=== PATIENT | female | born 1995 | race Caucasian/White ===

== ENCOUNTER 2022-12-01 00:10 | Emergency (ER) | payer MEDICAID ==
[~2022-12-01] VITALS: Ht 152.4 cm; Wt 54.0 kg
[2022-12-01 00:15] VITALS: BP 137/89
--- NOTE | 2022-12-01 01:08 | NUR ---
PT TO BED #6
--- NOTE | 2022-12-01 01:10 | NUR ---
Dr. Valerio by bedside evaluating patient.
[2022-12-01 01:14] LABS: BASOPHILS % (AUTO) 0.5 % (0.0-2.0); EOSINOPHILS # (AUTO) 0.1 K/uL (0-0.4); EOSINOPHILS % (AUTO) 0.9 % (0.0-4.0); HEMATOCRIT 38.1 % (36-48); HEMOGLOBIN 13.2 g/dL (12.0-16.0); LYMPHOCYTES # (AUTO) 1.6 K/uL (2.5-16.5); MEAN CORPUSCULAR HEMOGLOBIN 32 pg (27-31); MEAN CORPUSCULAR HGB CONC 35 g/dL (33-37); MEAN CORPUSCULAR VOLUME 90.9 fL (80-94); MONOCYTES # (AUTO) 0.7 K/uL (0.8-1.0); MONOCYTES % (AUTO) 8.1 % (1.7-9.3); NEUTROPHILS # (AUTO) 6.2 K/uL (1.8-7.7); NEUTROPHILS % (AUTO) 71.5 % (42.2-75.2); PLATELET COUNT (AUTO) 307 K/uL (140-450); RED BLOOD CELL COUNT(AUTO) 4.19 MIL/uL (4.20-5.40); RED CELL DISTRIBUTION WIDTH 12.2 % (11.6-13.7); WHITE BLOOD COUNT (AUTO) 8.7 K/uL (4.8-10.8)
--- NOTE | 2022-12-01 01:24 | NUR ---
Pt ambulated to restroom
--- NOTE | 2022-12-01 01:33 | NUR ---
Ultrasound at bedside.
--- NOTE | 2022-12-01 01:38 | NUR ---
Urine collected sent to lab
[2022-12-01 01:46] LABS: APPEARANCE,URINE CLEAR (CLEAR); BILIRUBIN,URINE NEGATIVE (NEGATIVE); BLOOD, URINE 3+ (NEGATIVE); COLOR,URINE YELLOW (YELLOW); LEUKOCYTE ESTERASE ,URINE NEGATIVE (NEGATIVE); NITRITE, URINE NEGATIVE (NEGATIVE); UGLUCOSE NEGATIVE (NEGATIVE)
[2022-12-01 01:53] LABS: ALBUMIN 3.6 g/dL (3.4-5.0); ANION GAP 11.2 (8-16); CARBON DIOXIDE 26.3 mmol/L (21-32); CREATININE 0.6 mg/dL (0.6-1.3); POTASSIUM 3.5 mmol/L (3.5-5.1); TOTAL BILIRUBIN 0.4 mg/dL (0.0-1.0)
[2022-12-01 01:56] LABS: WBC,URINE 0-5 /HPF (0-5)
--- NOTE | 2022-12-01 02:32 | NUR ---
PT AMBULATED TO RESTROOM, NOTIFIED THAT DURING WIPING HERSELF SHE NOTICES BLOOD ON TISSUE PAPER. ELIANAD MADE AWARE.
[2022-12-01] MEDS ORDERED: CEPH-588 PO (04:02)
--- NOTE | 2022-12-01 04:03 | NUR ---
Dr. Valerio examining patient.
[2022-12-01 04:12] VITALS: BP 137/89
--- NOTE | 2022-12-01 04:14 | NUR ---
Patient discharged with v/s stable. Written and verbal after care instructions given and explained. Patient verbalized understanding. Ambulatory with steady gait. All questions addressed prior to discharge. Advised to follow up with PMD.
== END 2022-12-01 04:14 | disposition home or self-care (01) ==
LOC: MED 00:10
DX: O20.0 Threatened abortion (principal); Z3A.18 18 weeks gestation of pregnancy; Z79.2 Long term (current) use of antibiotics
CPT/HCPCS: 36415; 76805; 80053; 81001; 81025; 84702; 85025; 86886; 86900; 86901; 87086; 99284; Q0092